=== PATIENT | male | born 2000 | race Two or more races ===

== ENCOUNTER 2023-03-02 20:23 | Inpatient (IN) | payer MEDICAID ==
[~2023-03-02] VITALS: Ht 188 cm; Wt 70.3 kg
[2023-03-02] MEDS ORDERED: PENICILLIN V POTASSIUM 500 MG TABLET PO ONE (21:45)
[2023-03-02] MEDS ORDERED: IBUPROFEN 600 MG TABLET PO ONE (21:45)
[2023-03-02 22:35] LABS: BASOPHILS % (AUTO) 0.7 % (0.0-2.0); EOSINOPHILS % (AUTO) 1.8 % (1.0-6.0); HEMATOCRIT 44.7 % (41-53); HEMOGLOBIN 14.4 g/dL (13.5-17.5); LYMPHOCYTES # (AUTO) 2.8 K/uL (1.0-4.8); LYMPHOCYTES % (AUTO) 29.9 % (22.0-44.0); MEAN CORPUSCULAR HEMOGLOBIN 29.7 pg (26.0-34.0); MEAN CORPUSCULAR HGB CONC 32.2 G/dL (31.0-37.0); MEAN CORPUSCULAR VOLUME 92 fL (80-100); MONOCYTES # (AUTO) 0.6 K/uL (0.1-1.0); NEUTROPHILS # (AUTO) 5.9 K/uL (1.8-7.7); NEUTROPHILS % (AUTO) 61.6 % (40.0-70.0); PLATELET COUNT (AUTO) 252 K/uL (150-450); RED BLOOD CELL COUNT(AUTO) 4.85 MIL/uL (4.50-5.90); RED CELL DISTRIBUTION WIDTH 14.7 % (11.5-14.5)
[2023-03-02 22:42] LABS: ANION GAP 10 mmol/L (8-16); CALCIUM, TOTAL 9.3 mg/dL (8.8-10.5); CARBON DIOXIDE 27 mmol/L (22-29); CHLORIDE 102 mmol/L (98-107); CREATININE 0.81 mg/dL (0.60-1.30); GLOMERULAR FILTR. RATE CALC > 60 mL/min (>60); GLUCOSE,RANDOM 120 mg/dL (70-110); POTASSIUM 4.5 mmol/L (3.5-5.1); SODIUM SERUM 139 mmol/L (136-145)
[2023-03-02 22:47] LABS: AMPHET/METH SCREEN,URINE NEGATIVE (NEGATIVE); BARBITURATE SCREEN, URINE NEGATIVE (NEGATIVE); BENZODIAZEPINES SCREEN,URINE NEGATIVE (NEGATIVE); CANNABINOID SCREEN,URINE POSITIVE (NEGATIVE); COCAINE SCREEN,URINE NEGATIVE (NEGATIVE); METHADONE SCREEN, URINE NEGATIVE (NEGATIVE); OPIATE SCREEN,URINE NEGATIVE (NEGATIVE); PHENCYCLIDINE SCREEN,URINE NEGATIVE (NEGATIVE)
[2023-03-02 22:48] LABS: ALANINE AMINOTRANSFERASE 67 U/L (12-78); ALBUMIN 3.4 g/dL (3.4-5.0); ALKALINE PHOSPHATASE 75 U/L (46-116); ASPARTATE AMINOTRANSFERASE 43 U/L (15-37); BILIRUBIN,TOTAL 0.2 mg/dL (0.1-1.0); TOTAL PROTEIN, SERUM 6.2 g/dL (6.4-8.2)
[2023-03-02 22:54] LABS: COVID AG,FIA SOURCE NASOPHARYNGEAL
[2023-03-03] MEDS ORDERED: ZOLPIDEM TARTRATE 10 MG TABLET PO PRN (11:45)
[2023-03-03] MEDS ORDERED: IBUPROFEN 600 MG TABLET PO ONE (15:00)
[2023-03-03] MEDS: HALOPERIDOL 5 MG TABLET PO PRN (18:48)
[2023-03-03] MEDS: LORazepam 2 MG TABLET PO PRN (18:48)
[2023-03-03 19:26] VITALS: BP 130/81; PULSE 77; RESP 17; TEMP 98; O2SAT 98
[2023-03-03] MEDS ORDERED: IBUPROFEN 600 MG TABLET PO PRN (20:45)
[2023-03-03] MEDS ORDERED: ONDANSETRON HCL 4 MG TABLET PO PRN (20:45)
[2023-03-03] MEDS ORDERED: ALBUTEROL SULFATE HFA 90 MCG/PUFF 8 GM INHALER IH PRN (20:45)
[2023-03-03] MEDS ORDERED: DOCUSATE SODIUM 100 MG CAPSULE PO PRN (20:45)
[2023-03-03] MEDS ORDERED: BENZOCAINE/MENTHOL LOZENGE PO PRN (20:45)
[2023-03-03] MEDS ORDERED: LOPERAMIDE HCL 2 MG CAPSULE PO PRN (20:45)
[2023-03-03] MEDS ORDERED: CloNIDine HCL 0.1 MG TABLET PO PRN (20:45)
[2023-03-03] MEDS ORDERED: OMEPRAZOLE 20 MG CAPSULE PO PRN (20:45)
[2023-03-03] MEDS ORDERED: MAG HYDROX/AL HYDROX/SIMETH ES 30 ML SUSPENSION UDCUP PO PRN (20:45)
[2023-03-03] MEDS ORDERED: ACETAMINOPHEN 325 MG TABLET PO PRN (20:45)
[2023-03-03] MEDS ORDERED: PETROLATUM,WHITE 28 GM JELLY TP PRN (20:45)
[2023-03-03] MEDS ORDERED: BACITRACIN 28 GM OINTMENT TP PRN (20:45)
[2023-03-03] MEDS ORDERED: MAGNESIUM HYDROXIDE SUSPENSION 30 ML UDCUP PO PRN (20:45)
[2023-03-03 21:04] VITALS: BP 126/78; PULSE 89; RESP 18; TEMP 98
[2023-03-03 22:02] VITALS: RESP 18
[2023-03-04 08:30] VITALS: BP 135/74; PULSE 80; RESP 17; TEMP 97.5; O2SAT 98
[2023-03-04] MEDS: LORazepam 2 MG TABLET PO PRN ×2 (11:15→17:57)
[2023-03-04] MEDS: HALOPERIDOL 5 MG TABLET PO PRN ×2 (11:15→17:57)
[2023-03-04 20:12] VITALS: BP 131/80; PULSE 74; RESP 20; TEMP 98.2; O2SAT 100
[2023-03-05 08:25] VITALS: BP 137/66; PULSE 78; RESP 20; TEMP 98.6; O2SAT 99
== END 2023-03-05 15:15 | disposition home or self-care (01) | DRG 750 ==
LOC: EMS 20:24 → B3A 03-03 16:13
PROVIDERS: ADMIT Psychiatry & Neurology Psychiatry; ATTEND Psychiatry & Neurology Psychiatry
DX: F25.9 Schizoaffective disorder, unspecified (principal); R45.851 Suicidal ideations; F32.9 Major depressive disorder, single episode, unspecified; Z20.822 Contact with and (suspected) exposure to COVID-19; F41.9 Anxiety disorder, unspecified; F12.90 Cannabis use, unspecified, uncomplicated; G47.00 Insomnia, unspecified; K02.9 Dental caries, unspecified; K59.00 Constipation, unspecified; F17.210 Nicotine dependence, cigarettes, uncomplicated; Z71.6 Tobacco abuse counseling; Z71.51 Drug abuse counseling and surveillance of drug abuser
CPT/HCPCS: 80053; 80307; 85025; 99285; G0480; 36415-L1; 36415-TC; Z7502; Z7610